=== PATIENT | male | born 1975 | race Caucasian/White ===

== ENCOUNTER 2017-08-27 09:35 | Emergency (ER) | payer OTHER ==
[~2017-08-27] VITALS: Ht 180.3 cm; Wt 91.6 kg
[2017-08-27 10:52] LABS: BASOPHILS # (AUTO) 0.05 x10^3/uL (0-0.1); BASOPHILS % (AUTO) 1 % (0-1); EOSINOPHILS # (AUTO) 0.13 x10^3/uL (0-0.4); EOSINOPHILS % (AUTO) 2 % (1-7); LYMPHOCYTES # (AUTO) 1.88 x10^3/uL (1-3.4); LYMPHOCYTES % (AUTO) 31 % (22-44); MD NO; MEAN CORPUSCULAR HEMOGLOBIN 30.5 pg (27.5-34.5); MEAN CORPUSCULAR HGB CONC 33.5 g/dL (33.2-36.2); MEAN CORPUSCULAR VOLUME 90.8 fL (81-97); MEAN PLATELET VOLUME 7.3 fL (7.4-10.4); MONOCYTES # (AUTO) 0.58 x10^3/uL (0.2-0.8); MONOCYTES % (AUTO) 10 % (2-9); NEUTROPHILS # (AUTO) 3.49 x10^3/uL (1.8-6.8); NEUTROPHILS % (AUTO) 57 % (42-75); PLATELET COUNT 268 x10^3/uL (130-400); RED BLOOD COUNT 4.51 x10^6/uL (4.38-5.82); RED CELL DISTRIBUTION WIDTH 13.9 % (9.4-14.8)
[2017-08-27 11:03] LABS: ALBUMIN 3.7 g/dL (3.4-5.0); ANION GAP 8 mmol/L (5-15); CALCIUM 8.3 mg/dL (8.5-10.1); CHLORIDE 105 mmol/L (98-107)
[2017-08-27 12:06] VITALS: BP 172/125
== END 2017-08-27 12:10 | disposition home or self-care (01) ==
LOC: ED 10:56
DX: I10 Essential (primary) hypertension (principal)
CPT/HCPCS: 36415; 80048; 82040; 85025; 93005; 99285

== ENCOUNTER 2018-10-02 12:02 | Emergency (ER) | payer SELFPAY ==
[~2018-10-02] VITALS: Ht 180.3 cm; Wt 100.3 kg
[~2018-10-02 12:02] MED LIST: HYDROCHLOROTH12.5 MG PO; LISI-167 PO
[2018-10-02 12:48] LABS: BASOPHILS # (AUTO) 0.03 x10^3/uL (0-0.1); BASOPHILS % (AUTO) 0 % (0-1); EOSINOPHILS # (AUTO) 0.26 x10^3/uL (0-0.4); EOSINOPHILS % (AUTO) 3 % (1-7); LYMPHOCYTES # (AUTO) 2.13 x10^3/uL (1-3.4); LYMPHOCYTES % (AUTO) 27 % (22-44); MD NO; MEAN CORPUSCULAR HEMOGLOBIN 30.7 pg (27.5-34.5); MEAN CORPUSCULAR HGB CONC 34.2 g/dL (33.2-36.2); MEAN CORPUSCULAR VOLUME 89.8 fL (81-97); MEAN PLATELET VOLUME 7.7 fL (7.4-10.4); MONOCYTES # (AUTO) 0.66 x10^3/uL (0.2-0.8); MONOCYTES % (AUTO) 9 % (2-9); NEUTROPHILS # (AUTO) 4.76 x10^3/uL (1.8-6.8); NEUTROPHILS % (AUTO) 61 % (42-75); PLATELET COUNT 306 x10^3/uL (130-400); RED BLOOD COUNT 5.15 x10^6/uL (4.38-5.82)
[2018-10-02 13:00] LABS: ALBUMIN 3.9 g/dL (3.4-5.0); ANION GAP 4 mmol/L (5-15); CALCIUM 8.4 mg/dL (8.5-10.1); CHLORIDE 104 mmol/L (98-107); CREATININE 0.95 mg/dL (0.7-1.3)
--- NOTE | 2018-10-02 13:10 | NUR ---
PAEDIATRIC PHYSIOTHERAPIST: PT TO ROOM FROM [facility] JIMENEZ
--- NOTE | 2018-10-02 13:22 | NUR ---
PT REPORTS HX OF HTN, NOT TAKING MEDS. STATES HE STOPPED TAKING MEDS WHEN RX FROM ED RAN OUT AND DID NOT FOLLOW UP WITH PCP. DIZZINESS TODAY CONTRACTING OFFICER PROMPTED PT TO BE SEEN TODAY. REPORTS DIZZINESS HAS RESOLVED. PT RESTING ON GURNEY. CALL LIGHT IN REACH. AWATING FURTHER ORDERS.
[2018-10-02] MEDS ORDERED: BP MED (13:57)
[2018-10-02] MEDS ORDERED: "\\\"WATER PILL\\\"" (13:57)
[2018-10-02] MEDS ORDERED: ENALAPRILAT 1.25 MG/ML, 2ML IV ONE (14:00)
[2018-10-02] MEDS ORDERED: ENALAPRILAT 1.25 MG/ML, 2ML ONE (14:01)
--- NOTE | 2018-10-02 14:41 | NUR ---
MD TO BEDSIDE. PT REMAINS HYPERTENSIVE.
--- NOTE | 2018-10-02 15:16 | NUR ---
EDUCATION PROVIDED TO PT ON IMPORTANCE OF BEING ADMITTED TO HOSPITAL FOR BP MGMT. PT REFUSES DESPITE EDUCATION PROVIDED AND STATES HE FULLY UNDERSTANDS RISK OF LEAVING AMA. PT SIGND AMA. PT PROVIDED WITH DC INSTRUCTIONS AND NEW RX. PT STATES UNDERSTANDING OF DC INSTRUCTIONS. PT LEFT WITH ALL PERSONAL BELONGINGS.
[2018-10-02 15:19] VITALS: BP 169/122
== END 2018-10-02 15:32 | disposition left against medical advice (07) ==
LOC: ED 15:17
DX: I16.9 Hypertensive crisis, unspecified (principal)
CPT/HCPCS: 36415; 71046; 80048; 82040; 85025; 93005; 99284

== ENCOUNTER 2018-11-21 17:26 | Emergency (ER) | payer MEDICAID ==
[~2018-11-21] VITALS: Ht 180.3 cm; Wt 101.0 kg
[~2018-11-21 17:26] MED LIST changes: +"\\\"WATER PILL\\\""; +BP MED
[2018-11-21 17:40] VITALS: BP 160/101
--- NOTE | 2018-11-21 17:45 | NUR ---
Pt ambulated to room with EDT.
--- NOTE | 2018-11-21 18:08 | NUR ---
QUANTITATIVE ANALYSTAnnie, at bedside to evaluate pt.
--- NOTE | 2018-11-21 18:33 | NUR ---
Patient/Caregiver given discharge instructions and they have confirmed that they understand the instructions. Patient ambulatory with steady gait.
== END 2018-11-21 18:34 | disposition home or self-care (01) ==
LOC: ED 18:28
DX: I10 Essential (primary) hypertension (principal); Z76.0 Encounter for issue of repeat prescription
CPT/HCPCS: 99283

== ENCOUNTER 2019-01-23 11:44 | Inpatient (IN) | payer MEDICAID ==
[~2019-01-23] VITALS: Ht 180.3 cm; Wt 102.2 kg
--- NOTE | 2019-01-23 12:11 | NUR ---
ORTHOSTATIC BLOOD PRESSURES TAKEN AT THE BEDSIDE.
--- NOTE | 2019-01-23 12:15 | NUR ---
ERP IS AT THE BEDSIDE FOR ASSESSMENT
[2019-01-23] MEDS ORDERED: SODIUM CHLORIDE FLUSH 10ML SYR IVF ONE (12:30)
--- NOTE | 2019-01-23 12:30 | NUR ---
PO FLUIDS PROVIDED FOR PT. WE ARE AWAITING THE RESULTS OF DIAGNOSTIC TESTING PRIOR TO FORMULATING A NEW PLAN OF CARE.
[2019-01-23 12:56] LABS: BASOPHILS # (AUTO) 0.03 x10^3/uL (0-0.1); BASOPHILS % (AUTO) 0 % (0-1); EOSINOPHILS % (AUTO) 2 % (1-7); LYMPHOCYTES # (AUTO) 1.81 x10^3/uL (1-3.4); LYMPHOCYTES % (AUTO) 21 % (22-44); MD NO; MEAN CORPUSCULAR HEMOGLOBIN 31.5 pg (27.5-34.5); MEAN CORPUSCULAR HGB CONC 33.7 g/dL (33.2-36.2); MEAN CORPUSCULAR VOLUME 93.5 fL (81-97); MEAN PLATELET VOLUME 8.2 fL (7.4-10.4); MONOCYTES # (AUTO) 0.82 x10^3/uL (0.2-0.8); MONOCYTES % (AUTO) 9 % (2-9); NEUTROPHILS # (AUTO) 5.85 x10^3/uL (1.8-6.8); NEUTROPHILS % (AUTO) 67 % (42-75); PLATELET COUNT 307 x10^3/uL (130-400); RED BLOOD COUNT 5.09 x10^6/uL (4.38-5.82); RED CELL DISTRIBUTION WIDTH 13.6 % (9.4-14.8)
[2019-01-23 13:08] LABS: ALANINE AMINOTRANSFERASE 37 U/L (12-78); ALBUMIN 4.4 g/dL (3.4-5.0); ANION GAP 10 mmol/L (5-15); CALCIUM 9.2 mg/dL (8.5-10.1); CHLORIDE 98 mmol/L (98-107); CREATININE 3.91 mg/dL (0.7-1.3)
--- NOTE | 2019-01-23 13:11 | NUR ---
ANNETTE (RN) IS ASSUMING CARE OF THIS PATIENT AT THIS TIME. SBAR REPORT WAS EXCHANGED AT THE BEDSIDE.
[2019-01-23 13:12] LABS: ALKALINE PHOSPHATASE 72 U/L (45-117); BILIRUBIN,TOTAL 0.7 mg/dL (0.2-1.0); TOTAL PROTEIN 7.9 g/dL (6.4-8.2); TROPONIN I < 0.015 ng/mL (0.000-0.045)
--- NOTE | 2019-01-23 13:30 | NUR ---
ASSUMED CARE OF PATIENT, AWARE OF PLAN WITH NO NEEDS AT THIS TIME. WILL CONTINUE TO MONITOR.
--- NOTE | 2019-01-23 13:50 | NUR ---
ASSUMING CARE OF PT. PT SITTING UP IN GURENY, AWAKE/ALERT. NAD NOTED. BP/SPO2/ECG MONITORING IN PLACE. NSR ON MONITOR. PT UPDATED TO POC (RESULTS/RECHECK) AND DEMONSTRATES UNDERSTANDING.
[2019-01-23] MEDS ORDERED: SODIUM CHLORIDE 0.9% 1,000ML IVBOLUS ONE ×2 (14:00→18:00)
--- NOTE | 2019-01-23 14:23 | NUR ---
IV ESTABLISHED. IVF HUNG PER ORDER
--- NOTE | 2019-01-23 14:51 | NUR ---
IVF CONTINUES TO INFUSE. PT REMAINS MILDLY HYPOTENSIVE; DENIES CP/SOB/DIZZINESS/WEAKNESS/NAUSEA. ORTHO VS NEGATIVE. CHART UP FOR RECHECK
--- NOTE | 2019-01-23 15:24 | NUR ---
KELVIN AT [facility] DENIED TRANSFER
--- NOTE | 2019-01-23 15:26 | NUR ---
[facility] DENIED TRANSFER
--- NOTE | 2019-01-23 15:58 | NUR ---
REPORT TO MOJGAN RN ON MEDICAL
[2019-01-23] MEDS ORDERED: ONDANSETRON 2MG/ML, 2ML IVPush PRN (17:30)
[2019-01-23] MEDS ORDERED: hydrALAzine 20 MG/ML, 1ML IVPush PRN (17:30)
[2019-01-23] MEDS ORDERED: ACETAMINOPHEN 325 MG TABLET PO PRN (17:30)
[2019-01-23] MEDS: HEPARIN 5,000 UNITS/ML, 1ML SQ SCH (17:30)
[2019-01-23 18:11] VITALS: BP 116/77
[2019-01-23] MEDS: SODIUM CHLORIDE 0.9% 1,000 ML IV SCH (19:21)
[2019-01-23 19:22] VITALS: BP 104/65
[2019-01-24 01:15] VITALS: BP 106/70
[2019-01-24] MEDS: HEPARIN 5,000 UNITS/ML, 1ML SQ SCH ×3 (01:30→17:30)
[2019-01-24 05:13] LABS: BASOPHILS # (AUTO) 0.03 x10^3/uL (0-0.1); BASOPHILS % (AUTO) 0 % (0-1); EOSINOPHILS # (AUTO) 0.28 x10^3/uL (0-0.4); EOSINOPHILS % (AUTO) 5 % (1-7); LYMPHOCYTES # (AUTO) 2.05 x10^3/uL (1-3.4); LYMPHOCYTES % (AUTO) 35 % (22-44); MD NO; MEAN CORPUSCULAR HEMOGLOBIN 31.3 pg (27.5-34.5); MEAN CORPUSCULAR HGB CONC 33.2 g/dL (33.2-36.2); MEAN CORPUSCULAR VOLUME 94.2 fL (81-97); MEAN PLATELET VOLUME 7.9 fL (7.4-10.4); MONOCYTES # (AUTO) 0.64 x10^3/uL (0.2-0.8); MONOCYTES % (AUTO) 11 % (2-9); NEUTROPHILS # (AUTO) 2.91 x10^3/uL (1.8-6.8); NEUTROPHILS % (AUTO) 49 % (42-75); PLATELET COUNT 223 x10^3/uL (130-400); RED BLOOD COUNT 4.53 x10^6/uL (4.38-5.82); RED CELL DISTRIBUTION WIDTH 13.9 % (9.4-14.8)
[2019-01-24 05:16] LABS: ANION GAP 5 mmol/L (5-15); CALCIUM 8.1 mg/dL (8.5-10.1); CHLORIDE 106 mmol/L (98-107)
[2019-01-24 05:22] LABS: CREATINE KINASE, TOTAL 960 U/L (39-308); CREATININE 2.08 mg/dL (0.7-1.3)
[2019-01-24] MEDS: SODIUM CHLORIDE 0.9% 1,000 ML IV SCH ×3 (06:35→23:53)
[2019-01-24 07:40] VITALS: BP 113/78
[2019-01-24 08:35] LABS: MICROSCOPIC NOT IND
[2019-01-24 08:38] LABS: CULTURE INDICATED? NO
[2019-01-24 15:10] VITALS: BP 129/74
[2019-01-24 19:45] VITALS: BP 110/71
[2019-01-24] MEDS ORDERED: TEMAZEPAM 15 MG CAPSULE PO PRN (23:00)
[2019-01-25] MEDS: HEPARIN 5,000 UNITS/ML, 1ML SQ SCH ×2 (01:30→08:27)
[2019-01-25 01:43] VITALS: BP 110/75
[2019-01-25 05:29] LABS: BASOPHILS # (AUTO) 0.03 x10^3/uL (0-0.1); BASOPHILS % (AUTO) 0 % (0-1); EOSINOPHILS # (AUTO) 0.28 x10^3/uL (0-0.4); EOSINOPHILS % (AUTO) 5 % (1-7); LYMPHOCYTES # (AUTO) 1.82 x10^3/uL (1-3.4); LYMPHOCYTES % (AUTO) 32 % (22-44); MD NO; MEAN CORPUSCULAR HEMOGLOBIN 30.9 pg (27.5-34.5); MEAN CORPUSCULAR VOLUME 93.6 fL (81-97); MEAN PLATELET VOLUME 7.9 fL (7.4-10.4); MONOCYTES # (AUTO) 0.54 x10^3/uL (0.2-0.8); MONOCYTES % (AUTO) 10 % (2-9); NEUTROPHILS # (AUTO) 2.99 x10^3/uL (1.8-6.8); NEUTROPHILS % (AUTO) 53 % (42-75); PLATELET COUNT 210 x10^3/uL (130-400); RED BLOOD COUNT 4.34 x10^6/uL (4.38-5.82); RED CELL DISTRIBUTION WIDTH 13.6 % (9.4-14.8)
[2019-01-25 05:36] LABS: ANION GAP 5 mmol/L (5-15); CALCIUM 8.4 mg/dL (8.5-10.1); CHLORIDE 106 mmol/L (98-107); CREATININE 1.32 mg/dL (0.7-1.3)
[2019-01-25 05:38] LABS: CREATINE KINASE, TOTAL 549 U/L (39-308)
[2019-01-25] MEDS: SODIUM CHLORIDE 0.9% 1,000 ML IV SCH (06:00)
[2019-01-25 08:50] VITALS: BP 112/73
== END 2019-01-25 09:57 | disposition home or self-care (01) | DRG 683 ==
LOC: ED 13:11 → EDIP 15:07 → UNDOADMIN 15:07 → 3NE 16:17 → EDIP 16:17 → ED 16:17 → 3NE 16:17 → DCLOUNGE 01-25 09:46
PROVIDERS: ADMIT Internal Medicine; ATTEND Internal Medicine
DX: N17.0 Acute kidney failure with tubular necrosis (principal); M62.82 Rhabdomyolysis; I10 Essential (primary) hypertension; I95.9 Hypotension, unspecified
CPT/HCPCS: 36415; 71045; 76770; 80048; 80053; 81003; 82550; 83605; 84484; 85025; 85379; 93005; G0378; J7030